=== PATIENT | female | born 1970 | race Caucasian/White ===

== ENCOUNTER 2019-06-09 14:18 | Emergency (ER) | payer BC ==
[2019-06-09] MEDS ORDERED: ALBUTEROL 2.5 MG/3 ML NEB SOL ONE (15:48)
[2019-06-09] MEDS ORDERED: IPRATROPIUM BROM 0.5MG/2.5ML ONE (15:48)
--- NOTE | 2019-06-09 16:11 | RAD REPORT ---
EXAM DESCRIPTION: RAD - Chest Pa And Lat (2 Views) - 06/09/2019 3:57 pm CLINICAL HISTORY: COUGH, fever COMPARISON: No comparisons TECHNIQUE: Frontal and lateral views of the chest were obtained. FINDINGS: The lungs are clear. Heart size is normal and central vasculature is within normal limit s. No pleural effusion or pneumothorax seen. No acute bony finding noted. No aortic abnormality. IMPRESSION: No acute cardiopulmonary process.
--- NOTE | 2019-06-09 16:36 | EDPHYS ---
Physician Documentation [facility] Name: Beatrice Vargas Age: 49 yrs Sex: Female : 1970 Arrival Date: 06/09/2019 Time: 14:23 Bed 23 Private MD: ED Physician Daniel Luis HPI: 06/09 16:13 This 49 yrs old Female presents to ER via Ambulatory with complaints of la1 Fever, Cough, Congestion. 16:13 The patient reports fever, that was measured at 103 degrees Fahrenheit, with an la1 emergency department temperature of 97.5 degrees Fahrenheit. Onset: The symptoms/episode began/occurred 3 day(s) ago. Modifying factors: Recent medications: acetaminophen, The patient has had contact with sick grandson flu A +, Denies recent travel. Associated signs and symptoms: Pertinent positives: cough, myalgias, Pertinent negatives: abdominal pain, altered mental status. Severity of symptoms: At their worst the symptoms were mild. The patient has not experienced similar symptoms in the past. 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 - Social history:: Smoking status: Patient denies any tobacco usage or history of. - Ebola Screening: : Patient negative for fever greater than or equal to 101.5 degrees Fahrenheit, and additional compatible Ebola Virus Disease symptoms Patient denies exposure to infectious person Patient denies travel to an Ebola-affected area in the 21 days before illness onset No symptoms or risks identified at this time. ROS: 16:25 Eyes: Negative for injury, pain, redness, and discharge, ENT: Negative for injury, la1 pain, and discharge, Cardiovascular: Negative for chest pain, palpitations, and edema. 16:25 Abdomen/GI: Negative for abdominal pain, nausea, vomiting, diarrhea, and constipation, Back: Negative for injury and pain, MS/Extremity: Negative for injury and deformity, Neuro: Negative for headache, weakness, numbness, tingling, and seizure. 16:25 Constitutional: Positive for body aches, chills, fatigue, fever, malaise. 16:25 Respiratory: Positive for cough, pleurisy. Exam: 16:25 Constitutional: This is a well developed, well nourished patient who is awake, alert, la1 and in no acute distress. Eyes: Lids and lashes normal. Conjunctiva and sclera are non-icteric and not injected. Cornea within normal limits. Periorbital areas with no swelling, redness, or edema. ENT: Nares patent. No nasal discharge, no septal abnormalities noted. Tympanic membranes are normal and external auditory canals are clear. Oropharynx with no redness, swelling, or masses, exudates, or evidence of obstruction, uvula midline. Mucous membranes moist. Chest/axilla: Normal chest wall appearance and motion. Nontender with no deformity. No lesions are appreciated. Cardiovascular: Regular rate and rhythm with a normal S1 and S2. No gallops, murmurs, or rubs. Normal PMI, no JVD. No pulse deficits. Respiratory: Lungs have equal breath sounds bilaterally, clear to auscultation. No rales, rhonchi or wheezes noted. No increased work of breathing, no retractions or nasal flaring. Neuro: Awake and alert, GCS 15, oriented to person, place, time, and situation. . Normal gait. Vital Signs: 14:39 BP 121 / 88; Pulse 88; Resp 16; Temp 97.5; Pulse Ox 100% on R/A; Weight 58.06 kg; iw Height 5 ft. 0 in. (152.40 cm); 16:30 BP 106 / 77; Pulse 91; Resp 18 S; Temp 98.2(O); Pulse Ox 100% on R/A; ca1 14:39 Body Mass Index 25.00 (58.06 kg, 152.40 cm) iw MDM: 15:14 Patient medically screened. la1 16:32 Differential diagnosis: viral Infection, bacterial infection, bronchitis, pneumonia. la1 Data reviewed: vital signs, nurses notes, radiologic studies, and as a result, I will discharge patient. Data interpreted: Pulse oximetry: on room air is 100 %. Interpretation: normal. Test interpretation: by ED physician or midlevel provider: plain radiologic studies. Counseling: I had a detailed discussion with the patient and/or guardian regarding: the historical points, exam findings, and any diagnostic results supporting the discharge/admit diagnosis, lab results, radiology results, the need for outpatient follow up, a family practitioner, to return to the emergency department if symptoms worsen or persist or if there are any questions or concerns that arise at home. Medication response: albuterol nebulizer treatment(s) partially relieved the patient's wheezing. Special discussion: I discussed with the patient/guardian in detail that at this point there is no indication for admission to the hospital. It is understood, however, that if the symptoms persist or worsen the patient needs to return immediately for re-evaluation. ED course: Discussed that antibiotics are not indicated at this time, pt concerned for worsening of infection and would like to receive RX in case her sx worsen. 06/09 15:44 Order name: Chest Pa And Lat (2 Views) XRAY; Complete Time: 16:22 la1 Administered Medications: 16:02 Drug: Albuterol 2.5 mg Route: Inhalation; mg2 16:02 Drug: AtroVENT Aerosol 0.5 mg Route: Inhalation; mg2 Disposition: 06/10 08:09 Co-signature as Attending Physician, Daniel Luis MD. rn Disposition: 06/09/19 16:34 Discharged to Home. Impression: Bronchitis, not specified as acute or chronic. - Condition is Stable. - Discharge Instructions: Acute Bronchitis, Adult, How to Use an Inhaler, Upper Respiratory Infection, Adult. - Prescriptions for Tessalon Perles 100 mg Oral Capsule - take 1 capsule by ORAL route every 8 hours As needed; 15 capsule. Zithromax Z- Nakul 250 mg Oral Tablet - take 1 tablet by ORAL route as directed for 5 days Day 1 - take two (2) tablets one time. Day 2, 3, 4 , 5 take one (1) tablet once daily.; 6 tablet. Albuterol Sulfate 90 mcg/actuation - inhale 1-2 puff by INHALATION route every 4-6 hours; 1 Inhaler. - Work release form, Medication Reconciliation Form, Thank You Letter, Antibiotic Education form. - Follow up: Private Physician; When: 2 - 3 days; Reason: Recheck today's complaints, Re-evaluation by your physician. - Problem is new. - Symptoms have improved. Signatures: Dispatcher [employer] Josee Cloud, NOY RN iw Daniel Luis MD MD rn Frank Huizar, APPLICATION TECHNICAL DESIGNER-C APPLICATION TECHNICAL DESIGNER-Cla1 Adan Monteiro, NOY RN mg2 Christiane Ashby RN RN ca1 Corrections: (The following items were deleted from the chart) 06/09 17:17 16:34 06/09/2019 16:34 Discharged to Home. Impression: Bronchitis, not specified as ca1 acute or chronic. Condition is Stable. Forms are Medication Reconciliation Form, Thank You Letter, Antibiotic Education, Prescription Opioid Use. Follow up: Private Physician; When: 2 - 3 days; Reason: Recheck today's complaints, Re-evaluation by your physician. Problem is new. Symptoms have improved. la1
--- NOTE | 2019-06-09 16:36 | ER ---
Nurse's Notes [facility] Name: Beatrice Vargas Age: 49 yrs Sex: Female : 1970 Arrival Date: 06/09/2019 Time: 14:23 Bed 23 Private MD: Diagnosis: Bronchitis, not specified as acute or chronic Presentation: 06/09 14:36 Presenting complaint: Patient states: Friday night started running fever up to 103, iw went to urgent care on Friday and was treated for flu, was prescribed xofluza, still running fever, 102 last night, now when she takes a deep breath it hurts and hurts when she cough, also has sinus pain, went back to urgent care and tested negative for flu. Transition of care: patient was not received from another setting of care. Onset of symptoms was June 06, 2019. Risk Assessment: Do you want to hurt yourself or someone else? Patient reports no desire to harm self or others. Initial Sepsis Screen: Does the patient meet any 2 criteria? No. Patient's initial sepsis screen is negative. Does the patient have a suspected source of infection? No. Patient's initial sepsis screen is negative. Care prior to arrival: None. 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 - Social history:: Smoking status: Patient denies any tobacco usage or history of. - Ebola Screening: : Patient negative for fever greater than or equal to 101.5 degrees Fahrenheit, and additional compatible Ebola Virus Disease symptoms Patient denies exposure to infectious person Patient denies travel to an Ebola-affected area in the 21 days before illness onset No symptoms or risks identified at this time. Screenin:20 Abuse screen: Denies threats or abuse. Denies injuries from another. Nutritional ca1 screening: No deficits noted. Tuberculosis screening: No symptoms or risk factors identified. Fall Risk None identified. Assessment: 15:20 General: Appears in no apparent distress. comfortable, Behavior is calm, cooperative, ca1 appropriate for age, Reports fever for > 3 days. Pain: Denies pain. Neuro: Level of Consciousness is awake, alert, obeys commands, Oriented to person, place, time, situation, Appropriate for age. Cardiovascular: Heart tones S1 S2 present Capillary refill < 3 seconds Patient's skin is warm and dry. Respiratory: Airway is patent Respiratory effort is even, unlabored, Respiratory pattern is regular, symmetrical, Breath sounds are clear bilaterally. Respiratory: Reports cough that is non-productive, since 3 days ago. GI: Abdomen is flat, non-distended, Bowel sounds present X 4 quads. Abd is soft and non tender X 4 quads. :. : No deficits noted. No signs and/or symptoms were reported regarding the genitourinary system. EENT: Reports nasal congestion nasal discharge that is green since 3 days ago. Derm: Skin is intact, is healthy with good turgor, Skin is pink, warm \T\ dry. Musculoskeletal: Circulation, motion, and sensation intact. Capillary refill < 3 seconds. 16:30 Reassessment: Patient appears in no apparent distress at this time. Patient and/or ca1 family updated on plan of care and expected duration. Pain level reassessed. Patient is alert, oriented x 3, equal unlabored respirations, skin warm/dry/pink. Vital Signs: 14:39 BP 121 / 88; Pulse 88; Resp 16; Temp 97.5; Pulse Ox 100% on R/A; Weight 58.06 kg; iw Height 5 ft. 0 in. (152.40 cm); 16:30 BP 106 / 77; Pulse 91; Resp 18 S; Temp 98.2(O); Pulse Ox 100% on R/A; ca1 14:39 Body Mass Index 25.00 (58.06 kg, 152.40 cm) iw ED Course: 14:23 Patient arrived in ED. mr 14:38 Triage completed. iw 15:14 Frank Huizar FNP-C [facility]. la1 15:14 Daniel Luis MD is Attending Physician. la1 15:15 Christiane Ashby, NOY is Primary Nurse. ca1 15:20 Patient has correct armband on for positive identification. Bed in low position. Call ca1 light in reach. Side rails up X 1. Pulse ox on. NIBP on. Warm blanket given. 15:20 No provider procedures requiring assistance completed. ca1 15:23 Arm band placed on right wrist. ca1 15:57 Chest Pa And Lat (2 Views) XRAY In Process Unspecified. EDMS 17:16 Patient did not have IV access during this emergency room visit. ca1 Administered Medications: 16:02 Drug: Albuterol 2.5 mg Route: Inhalation; mg2 16:02 Drug: AtroVENT Aerosol 0.5 mg Route: Inhalation; mg2 Outcome: 16:34 Discharge ordered by MD. la1 17:16 Discharged to home ambulatory. ca1 17:16 Condition: stable 17:16 Discharge instructions given to patient, Instructed on discharge instructions, follow up and referral plans. medication usage, Demonstrated understanding of instructions, follow-up care, medications, Prescriptions given X 3. 17:17 Patient left the ED. ca1 Signatures: Dispatcher [employer] [facility] Emma Panda Irene, RN RN iw Frank Huizar, ELECTR[employer] GOLF [employer] REPAIRERS-C [employer]PAIRERS-Cla1 Adan Monteiro, NOY VILLAFUERTE mg2 Christiane Ashby RN RN ca1
[2019-06-09 23:50] VITALS: O2SAT 100
[2019-06-09 23:56] VITALS: BP 106/77; TEMP 98.2
== END 2019-06-09 17:17 | disposition home or self-care (01) ==
LOC: ER 14:18
DX: J40 Bronchitis, not specified as acute or chronic (principal); E03.9 Hypothyroidism, unspecified; B27.00 Gammaherpesviral mononucleosis without complication; Z88.2 Allergy status to sulfonamides; Z88.8 Allergy status to other drugs, medicaments and biological substances
CPT/HCPCS: 71046; 99284

== ENCOUNTER 2019-11-19 07:05 | Day surgery (SDC) | payer BC ==
--- NOTE | 2019-11-16 12:33 | EKG ---
Test Date: 2019-11-16 Test Time: 11:14:26 Conductor/Engineer: STEPHANIE MEASUREMENT RESULTS: Intervals: Rate: 90 IL: 130 QRSD: 78 QT: 332 QTc: 406 Echo: P: 15 IL: 130 QRS: 42 T: 37 INTERPRETIVE STATEMENTS: Normal sinus rhythm Normal ECG No previous ECG available for comparison Electronically Signed On 11-16-19 12:33:03 CDT by Ebenezer Ovalle
[2019-11-19] MEDS ORDERED: LIDOCAINE 2% MPF 5 ML VIAL ONE (07:35)
[2019-11-19] MEDS ORDERED: propofoL 200 MG/20 ML VIAL IV ONE (07:35)
[2019-11-19] MEDS ORDERED: dexAMETHasone 10 MG/ML VIAL ONE (07:35)
[2019-11-19] MEDS ORDERED: FENTANYL CITR 100 MCG/2 ML ONE (07:35)
[2019-11-19] MEDS ORDERED: ROCURONIUM 50 MG/5 ML VIAL IV ONE (07:35)
[2019-11-19] MEDS ORDERED: MIDAZOLAM HCL 2 MG/2 ML INJ ONE (07:36)
[2019-11-19] MEDS ORDERED: Ringers Lactate 1,000 ML IV ONE (07:39)
[2019-11-19] MEDS ORDERED: LIDOCAINE 1% W/EPI 1:100,000 MDV 20 ML VIAL ONE (07:49)
[2019-11-19] MEDS: BUPIVACA 0.25%/EPI 0.0005%/PF 30 ML VIAL ONE ×2 (08:04→08:45)
[2019-11-19] MEDS ORDERED: ONDANSETRON 4 MG/2 ML VIAL ONE ×2 (08:44→09:37)
[2019-11-19] MEDS ORDERED: MORPHINE 10 MG/ML VIAL ONE (08:45)
[2019-11-19] MEDS: HYDROMORPHONE HCL 1 MG/ML INJ ONE ×2 (09:20→09:25)
[2019-11-19] MEDS: MEPERIDINE HCL 25 MG/ML SYR ONE ×2 (09:30→09:35)
[2019-11-19] MEDS ORDERED: HYDROMORPHONE HCL 1 MG/ML INJ ONE (09:37)
[2019-11-19] MEDS ORDERED: DIPHENHYDRAMINE 50 MG/ML VIAL ONE (10:25)
[2019-11-19 10:47] VITALS: O2SAT 100
[2019-11-19] MEDS ORDERED: HYDROCOD 2.5mg-ACETAMIN 108mg/5mL Soln ONE (11:39)
[2019-11-19 13:55] VITALS: BP 124/63; TEMP 98.4
--- NOTE | 2019-11-19 15:36 | OP ---
Date of Procedure: 11/19/2019 Surgeon: Fabiana Leary MD Supervisor Hand Workers: None. Preoperative Diagnoses: Right cervical lymphadenopathy and chronic tonsillitis. Postoperative Diagnoses: Right cervical lymphadenopathy and chronic tonsillitis. Procedures: Open excisional biopsy of the deep cervical lymph nodes and bilateral tonsillectomy. Description Of Procedure: The patient was brought to the operating room. She was placed under general anesthesia via oral endotracheal tube. Shoulder roll was placed. The head was turned to the left for exposure of the right neck. The lymph nodes of interest were palpated and located on the posterior edge of the sternocleidomastoid muscles in the region of the spinal accessory nerve. The neck was prepped and draped in a sterile fashion. A 2 cm incision was made through the skin and subcutaneus tissues. The fatty tissues were bluntly dissected revealing the sternocleidomastoid muscle. The posterior aspect was identified and carefully retracted anteriorly, revealing the lymph node of interest deep to the muscle. The lymph node was grasped and carefully dissected, taking care to avoid cauterization in order to avoid thermal injury to the spinal accessory nerve. The nerve was not specifically dissected or identified. After removal of the lymph nodes, the area was carefully inspected and there was no evidence of bleeding. The wound was closed in a layered fashion using 4-0 Vicryl and 5-0 Monocryl. Dermabond was applied to the incision. The patient's head was turned back to the midline. A head drape was applied. A McIvor mouth gag was used to retract the tongue and provide exposure to the oropharynx. Soft palate was palpated and was unremarkable. A red rubber catheter was passed through the right nostril and withdrawn through the mouth, secured to the drapes to retract the soft palate. The right tonsil was grasped with a straight Allis clamp. The Bovie electrocautery was used to incise along the edge of the mucosa until the tonsillar capsule was identified. The tonsil was bluntly dissected and hemostasis was achieved by electrocautery until the tonsil could be dissected and removed. Similar procedure was performed on the left side. After removal of both tonsils, the tonsillar pillars and fossa were injected with a total of 2 mL of 1% lidocaine with epinephrine. The area was carefully inspected and was noted to be hemostatic. The orogastric tube was passed into stomach for removal of gastric contents, which was minimal. The red rubber catheter was released and removed; the oropharynx was inspected 1 final time to assure hemostasis. The retractor was removed and the patient returned to care of anesthesia for awaking and extubation in the OR. Complications: none Specimen: right deep cervical level 5 node, right and left tonsils SH/MODL Voice ID: [id number] Report ID: [id number] REGAN
== END 2019-11-19 12:05 | disposition home or self-care (01) ==
LOC: OR 07:05
PROVIDERS: ATTEND Otolaryngology
PROC: 0CTPXZZ Resection of Tonsils, External Approach (ICD-10-PCS; principal; 2019-11-19 08:15)
PROC: 07B10ZX Excision of Right Neck Lymphatic, Open Approach, Diagnostic (ICD-10-PCS; 2019-11-19 08:15)
DX: R59.0 Localized enlarged lymph nodes (principal); J35.01 Chronic tonsillitis; E03.9 Hypothyroidism, unspecified; Z11.59 Encounter for screening for other viral diseases; Z88.2 Allergy status to sulfonamides; Z88.6 Allergy status to analgesic agent; Z88.8 Allergy status to other drugs, medicaments and biological substances
CPT/HCPCS: 93005; 88304; 88305; 42826; 38510; J2704; J1200; J3010; J1100; J2175; J1170 ×2; J7120; J2405 ×2; J2250